=== PATIENT | male | born 1965 | race Caucasian/White ===

== ENCOUNTER 2018-09-02 02:40 | Outpatient (CLI) | payer OTHER, SELFPAY ==
[2018-09-02 11:48] LABS: Abs Immature Grans 0.01 k/cumm (0.0-0.09); Absolute Basophil Count 0.01 k/cumm (0.0-0.2); Absolute Eosinophil Count 0.09 k/cumm (0.0-0.7); Absolute Lymphocyte Count 1.29 k/cumm (1.2-3.4); Absolute Monocyte Count 0.42 k/cumm (0.11-0.7); Absolute Neutrophil Count 3.73 k/cumm (1.2-6.7); Basophils % 0.2; Eosinophils % 1.6; HCT 43.1 % (40.0-50.0); HGB 14.4 g/dL (13.5-17.5); Immature Grans % 0.2; Lymphocytes % 23.2; Mean Corp. HGB Concentration 33.4 g/dL (32.0-36.0); Mean Corpuscular Hemoglobin 30.6 pg (27.0-33.0); Mean Corpuscular Volume 91.7 fL (80-95); Mean Platelet Volume 9.6 fL (8.0-11.0); Monocytes % 7.6; Neutrophils % 67.2; Platelet Count 226 x1000/uL (130-400); RBC Distribution Width 12.7 % (11.8-14.1); White Blood Cell Count 5.55 k/cumm (4.4-10.8)
[2018-09-02 12:41] LABS: ALT 29 U/L (12-78); AST 21 U/L (15-37); Alkaline Phosphatase 58 U/L (46-116); Anion Gap 5.5 mmol/L (3-11); BUN 19 mg/dL (7-18); Bilirubin, Total 0.9 mg/dL (0.2-1.0); CO2 31.5 mmol/L (21.0-32.0); CREATININE 0.99 mg/dL (0.70-1.30); Calcium 8.9 mg/dL (8.5-10.1); Chloride 103 mmol/L (98-107); Cholesterol 195 mg/dL (50-200); Glucose 90 mg/dL (70-100); HDL Cholesterol 76 mg/dL (40-60); LDL CHOLESTEROL 110 mg/dL (<100); Sodium 140 mmol/L (136-145); TSH (W/Ref FT4) 1.69 uIU/mL (0.358-3.74)
[2018-09-02 12:48] LABS: Triglyceride < 25 mg/dL (30-150)
== END 2018-09-02 03:00 ==
PROVIDERS: PCP Internal Medicine; Visit Provider Internal Medicine
DX: R20.2 Paresthesia of skin (principal); E78.89 Other lipoprotein metabolism disorders; R53.83 Other fatigue; Z82.49 Family history of ischemic heart disease and other diseases of the circulatory system
CPT/HCPCS: 36415; 80053; 80061; 83721; 84443; 85025

== ENCOUNTER 2018-09-02 16:16 | Outpatient (CLI) | payer OTHER, SELFPAY | END 2018-09-02 16:36 | PROVIDERS: PCP Internal Medicine; Visit Provider Internal Medicine | DX: I48.91 Unspecified atrial fibrillation (principal); I49.1 Atrial premature depolarization; I49.3 Ventricular premature depolarization | CPT/HCPCS: 93225 ==

== ENCOUNTER 2018-09-06 14:43 | Outpatient (CLI) | payer OTHER, SELFPAY ==
--- NOTE | 2018-09-06 15:53 | HOLTER_ITS ---
Date of dictation: September 06, 2018 Study Indication: Atrial fibrillation. Requesting Provider: Jennie Power M.D. Findings: The patient was monitored for 2 days. The baseline rhythm was sinus rhythm. Average heart rate 53 bpm, range 36-127 bpm. There was rare ectopy. 10 PVCs and 70 PACs total. There were 3 episodes of atrial fibrillation. Total time in atrial fibrillation 7 minutes and 46 seconds. Longest episode 3 minutes and 31 seconds. Maximum heart rate 176 bpm. There were no pauses greater than 3 seconds. There was no high-degree heart block. There were no patient events. Final Interpretation: Bursts of paroxysmal atrial fibrillation.
== END 2018-09-06 15:03 ==
PROVIDERS: PCP Internal Medicine; Visit Provider Internal Medicine
DX: I48.91 Unspecified atrial fibrillation (principal); I49.1 Atrial premature depolarization; I49.3 Ventricular premature depolarization
CPT/HCPCS: 93226

== ENCOUNTER 2020-05-01 08:32 | Outpatient (CLI) | payer OTHER, SELFPAY ==
[2020-05-03 12:46] LABS: Patient Race White; SARS-CoV-2 RNA Undetected (Undetected); SARS-CoV-2 Specimen Source Nasopharynx
== END 2020-05-01 08:52 ==
PROVIDERS: PCP Nurse Practitioner; Visit Provider Nurse Practitioner
DX: Z20.828 Contact with and (suspected) exposure to other viral communicable diseases (principal)
CPT/HCPCS: U0003

== ENCOUNTER 2020-11-16 18:25 | Emergency (ER) | payer OTHER, SELFPAY ==
[2020-11-16 18:29] VITALS: BP 133/89; PULSE 64; RESP 18; TEMP 36.6; O2SAT 98
--- NOTE | 2020-11-16 18:38 | W.ED.GENAD ---
Discharge Plan Disposition Patient Disposition: HOME Condition: Good Discharge Details Clinical Impression: Finger laceration Primary Care Provider: Maru Castellanos ED Provider: Griselda Blair Home Meds and New Rx's Prescriptions: Continued multivitamin with iron 1 EACH tablet 1 ea PO DAILY RF: 0 Discharge Instructions Instructions: Finger Laceration (ED) Additional Instructions: Keep wound clean, dry, covered. Keep current dressing on until tomorrow. After that, you may cover with a Band-Aid and apply the splint provided. The brace should help prevent excess stress on the wrist. Please monitor wound for signs of infection including redness, warmth, drainage, increased pain, fever/chills. If you develop these or other new/worsening symptoms please seek care urgently once again. Please wear gloves to protect the wound and prevent infection when appropriate. Please return in 10 days for suture removal. Tetanus updated today Referrals: Maru Castellanos, [facility] [Primary Care Provider] - Discharge Data Discharge Date/Time-TO BE ENTERED AT DEPARTURE: 11/16/20 19:55 Medical Decision Making Patient is a pleasant 55-year-old [id number] male presenting today with chief complaint of laceration to left index finger. Reports that he was working on his gutters earlier when he cut himself on the edge of his metal roof. Denies other injury at the time of the incident. Denies any numbness or tingling. Unknown tetanus status. On exam, patient appears nontoxic. He has a 4 cm irregular flap laceration. Deep structures are intact. No evidence of ligamentous or bony injury. Patient and I discussed risk/benefits as well as expected procedural steps associated with closure. He voiced understanding and wishes to proceed Last tetanus was in 2014. Patient does reports that his wound was heavily contaminated. We will update this today Please see procedure note. Patient tolerated this well. Wound was copiously irrigated, explored to base in a bloodless field no foreign body or debris noted. Patient I discussed wound care and. He will return in 10 days to suture removal. Patient will be given a splint to help stabilize this area as it is near the PIP joint and keep undue pressure from the stitches. We discussed activities he should avoid. Return precautions were discussed, in particular signs of infection. All the questions and concerns were addressed and he is in agreement this plan. HPI General Mode of arrival: ambulatory. Date/Time Provider Initiated Documentation: 11/16/20 18:38. Limitations to Documentation: no limitations. Information obtained by: patient and RN notes reviewed. History of Present Illness 55 year old M presents to the emergency department with the chief complaint of left index finger laceration, described as mild, with intensity rated at 3. Quality is described as aching, and is localized to the left and upper extremity. Patient reports no radiation. Patient started experiencing this minute(s) and it has been constant. No relieving factors improve symptom(s), No exacerbating factors reported . Patient notes no other symptoms.. Patient did receive the following treatments prior to arrival, other (cleansed wound, dressing applied) Related Data Home Medications Medication Instructions Recorded Confirmed multivitamin with iron 1 ea PO DAILY 12/07/13 11/16/20 Allergies Allergy/AdvReac Type Severity Reaction Status Date / Time No Known Allergies Allergy Unverified 11/16/20 18:34 General Stated Complaint: Laceration KAYLIN: 4 Review of Systems Constitutional Constitutional: Reports as per HPI, Denies chills and Denies fever(s) Musculoskeletal Musculoskeletal: Reports as per HPI Integumentary/Breasts Skin/Breast: Reports as per HPI Neurologic Neurologic: Reports as per HPI, Denies sensory deficit and Denies paresthesias PFSH Family History Mother , 69 Substance abuse Lung cancer Father , 80 Essential hypertension Heart disease Hyperlipidemia Alcohol abuse Sister Alcohol abuse Neoplasm ORAL Substance abuse Brother Substance abuse Alcohol abuse Maternal Grandfather , 40 Heart disease Paternal Grandfather , 60 Heart disease Maternal Grandmother , 85 Heart disease Lung cancer Social History Smoking/Tobacco Use Status: Never Smoking risk assessment performed?: Yes Alcohol Intake: current Alcohol Intake frequency: a few times a month Alcohol type: beer Substance use type: does not use Caregiver/Support person: No Household members: spouse Housing: house Pets and animals: No Sexually active: Yes Do you think of yourself as: straight/heterosexual Current gender identity: male What is your relationship status?: How often do you talk on the phone with friends or family?: three or more times per week How often do you get together with friends or relatives?: once per week How often do you attend restorationist or tenriism services?: 1-3 times per year Do you belong to any clubs or organized social groups?: yes Panel score (0-1 are the most socially isolated patients): 3 Duration: 30-45 minutes/day Frequency: daily Yennifer/Alevism: None Special yennifer needs: No Do you feel safe at home: Yes Do you feel safe in your relationship?: Yes Exam Const General: cooperative, healthy appearing, comfortable, no acute distress and well developed Nutritional Appearance: average body habitus and well nourished Orientation: alert and awake Resp Effort & Inspection: normal respiratory effort, able to speak in complete sentences and no respiratory distress Cardio Rate: regular rate Rhythm: regular rhythm Skin Trauma: laceration Neuro General: patient alert and patient awake Cognition: normal cognition Speech: speech normal Gait: normal gait Sensory Exam: no sensory deficits noted Extrem Hand/finger images: 1. Irregularly-shaped flap laceration totaling 4 cm in length. Wound is in the subcutaneous tissue. The tip of the laceration is dusky and darkened. Remaining tissue appears viable. Deep structures are intact. Unable to visualize ligament injury or bone. He has good extension against resistance. Sensation is intact. Brisk capillary refill. Psych Appearance: grossly normal and well kempt Mental Status: mental status grossly normal Speech and Movement: speech and movement normal Course Vital Signs Vital signs: Vital Signs Temperature 36.6 C 11/16/20 18:29 Respiratory Rate 18 11/16/20 18:29 Blood Pressure 133/89 11/16/20 18:29 Pulse Oximetry 98 11/16/20 18:29 Temperature 36.6 C 11/16/20 18:29 Temperature Source Temporal Artery Scan 11/16/20 18:29 Respiratory Rate 18 11/16/20 18:29 Respiratory Effort Non-Labored 11/16/20 18:35 Blood Pressure 133/89 11/16/20 18:29 Blood Pressure Position Sitting 11/16/20 18:29 Pulse Oximetry 98 11/16/20 18:29 Oxygen Delivery Method Room Air 11/16/20 18:29 Oxygen Flow Rate 0 11/16/20 18:29 Pain Level 3 11/16/20 18:29 Procedures Laceration Laceration 1: Site: hand Side (If applicable): left Size (cm): 4 Description: flap and irregular Depth: simple, single layer Local Anesthetic: Lidocaine 1% Amount of anesthesia used (mL): 7 Pre-repair: wound explored, irrigated extensively and deep structures intact Skin layer closed with: nylon Size (cm): 6-0 Number of sutures: 4 Technique: simple, interrupted
== END 2020-11-16 19:55 | disposition home or self-care (01) ==
PROVIDERS: Emergency Provider Physician Assistant; PCP Nurse Practitioner
DX: S61.211A Laceration without foreign body of left index finger without damage to nail, initial encounter (principal); W26.8XXA Contact with other sharp object(s), not elsewhere classified, initial encounter
CPT/HCPCS: 12002; 90471

== ENCOUNTER 2020-11-25 15:57 | Emergency (ER) | payer OTHER, SELFPAY ==
--- NOTE | 2020-11-25 16:00 | DI.RAD_ITS ---
Exam(s) XR FOOT LT COMPLETE EXAM: XR FOOT LT COMPLETE CLINICAL HISTORY: chainsaw injury. TECHNIQUE: 2D digital imaging was performed. COMPARISON: No exams were available for comparison FINDINGS: BONES: No acute fracture is present. No bony destructive lesion is seen. There is a 2 mm density on t he plantar surface of the great toe adjacent to the base of the distal phalanx. This may represent a small foreign body. There is a small plantar calcaneal spur. JOINTS: No dislocation present. SOFT TISSUE: There soft tissue injury at the medial aspect of the great toe. IMPRESSION: 1. 2 mm density at the plantar aspect of the 1st toe at the base of the proximal phalanx which may re present a foreign body. 2. Soft tissue swelling of the great toe. DATA REPOSITORY: RADIATION DOSE DELIVERED:
[2020-11-25 16:04] VITALS: BP 130/90; PULSE 67; RESP 16; TEMP 36.8; O2SAT 97
--- NOTE | 2020-11-25 16:08 | ED.GENADUL_ITS ---
Discharge Plan Disposition Patient Disposition: HOME Condition: Stable Discharge Details Clinical Impression: Laceration of foot, left Primary Care Provider: Maru Castellanos ED Provider: Julio Ansari Home Meds and New Rx's Prescriptions: New amoxicillin-pot clavulanate [Augmentin] 875-125 mg tablet 1 tab PO BID Qty: 9 RF: 0 Continued multivitamin with iron 1 EACH tablet 1 ea PO DAILY RF: 0 Discharge Instructions Instructions: Laceration (ED) Additional Instructions: return in 10 days for evaluation for suture removal and return sooner for signs of infection including spreading redness on the skin or yellow/white discharge from the wound Medical Decision Making 55 yo male comes in after he cut his left foot with a chainsaw. He was cutting a stump with the chainsaw and states that it got stuck so he pushed harder than he normally does and it dislodged the chainsaw but hit his left foot. Denies falling or other injuries and on exam has 3cm laceration on medial distal foot proximal to the toes. Has full rom of the toes and ankle, normal sensation and pulses and no bleeding on exam. Suspect laceration but will xray to evaluate for underlying fracture. He had sutures placed on his left index finger 9 days ago and has normal sensation and wound is well healed so will remove the sutures while he is here, no evidence of infection. xray shows no fracture but noted either bone fragment on volar 1st toe that could be foreign body per vrad but this is nowhere near the laceration, he has no pain or tenderness here or palpable deformity.HE states he has had numerous foot injuries in his work and believes he fractured the toe in the past. Closed with sutures without complications, will d/c and return precautions given. Given he cut through his boot and sock will place on prophylactic antibiotics as well Differential Diagnosis Differential Diagnosis: laceration, fracture Imaging Data Radiologic Study: Attestation: I personally reviewed and interpreted this imaging study as follows: Imaging: X-Ray Radiologist's impression: PROCEDURE INFORMATION: Exam: XR Left Foot Exam date and time: 11/25/2020 4:18 PM Age: 55 years old Clinical indication: Injury or trauma; Other: Laceration to medial foot; Left; Foreign body involvement not specified TECHNIQUE: Imaging protocol: XR Left foot. Views: 3 or more views. COMPARISON: No relevant prior studies available. FINDINGS: Bones/joints: Well corticated bone fragment projects on the volar aspect of the 1st toe adjacent the base of the distal phalanx. This could be foreign body.Small plantar calcaneal spur. Soft tissues: Soft tissue swelling and deformity medial 1st MTP joint. IMPRESSION: 1. Tiny foreign body plantar aspect right 1st toe adjacent to the base of proximal phalanx. 2. Soft tissue swelling and deformity medial to the 1st MTP joint HPI General Mode of arrival: ambulatory . Date/Time Provider Initiated Documentation: 11/25/20 15:58 . Limitations to Documentation: no limitations . Information obtained by: patient . History of Present Illness 55 year old M presents to the emergency department with the chief complaint of cut left foot with chainsaw, described as mild, Quality is described as aching, and is localized to the left and lower extremity. Patient reports no radiation. Patient started experiencing this hour(s) (1) and it has been constant. No relieving factors improve symptom(s), No exacerbating factors reported . Patient notes no other symptoms.. Patient did receive the following treatments prior to arrival, none Related Data Home Medications Medication Instructions Recorded Confirmed multivitamin with iron 1 ea PO DAILY 12/07/13 11/25/20 amoxicillin-pot clavulanate 1 tab PO BID #9 tab 11/25/20 [Augmentin] Previous Rx's Medication Instructions Recorded amoxicillin-pot clavulanate 1 tab PO BID #9 tab 11/25/20 [Augmentin] Allergies Allergy/AdvReac Type Severity Reaction Status Date / Time No Known Allergies Allergy Unverified 11/25/20 16:08 General Stated Complaint: Laceration KAYLIN: 3 Review of Systems All systems reviewed & are unremarkable except as noted in HPI and below Constitutional Constitutional: Denies chills, Denies fever(s) and Denies weakness Cardiovascular Cardiovascular: Denies chest pain and Denies dyspnea Respiratory Respiratory: Denies cough and Denies dyspnea Gastrointestinal Gastrointestinal: Denies abdominal pain, Denies nausea and Denies vomiting Musculoskeletal Musculoskeletal: Denies joint swelling Neurologic Neurologic: Denies weakness Psychiatric Psychiatric: Denies depression PFSH Family History Mother , 69 Substance abuse Lung cancer Father , 80 Essential hypertension Heart disease Hyperlipidemia Alcohol abuse Sister Alcohol abuse Neoplasm ORAL Substance abuse Brother Substance abuse Alcohol abuse Maternal Grandfather , 40 Heart disease Paternal Grandfather , 60 Heart disease Maternal Grandmother , 85 Heart disease Lung cancer Social History Smoking/Tobacco Use Status: Never Smoking risk assessment performed?: Yes Alcohol Intake: never Substance use type: does not use Caregiver/Support person: No Household members: spouse Housing: house Pets and animals: No Sexually active: Yes Do you think of yourself as: straight/heterosexual Current gender identity: male What is your relationship status?: How often do you talk on the phone with friends or family?: three or more times per week How often do you get together with friends or relatives?: once per week How often do you attend spiritism or orthodoxy services?: 1-3 times per year Do you belong to any clubs or organized social groups?: yes Panel score (0-1 are the most socially isolated patients): 3 Duration: 30-45 minutes/day Frequency: daily Yennifer/Latter Day: None Special yennifer needs: No Do you feel safe at home: Yes Do you feel safe in your relationship?: Yes Exam Const General: no acute distress Orientation: alert HENMT Head: normal to inspection Ears: external ears normal General nose exam: external nose normal Mouth: moist mucous membranes Eyes General: appearance normal, both eyes and all related structures Neck Neck: normal visual inspection Resp Effort & Inspection: normal respiratory effort and able to speak in complete sentences Cardio Rate: regular rate Skin General skin exam: no rashes or lesions noted Neuro General: patient alert and patient oriented x3 Extrem General: full ROM and capillary refill normal Psych Mental Status: mental status grossly normal Course Vital Signs Vital signs: Vital Signs Temperature 36.8 C 11/25/20 16:04 Pulse 67 11/25/20 16:04 Respiratory Rate 16 11/25/20 16:04 Blood Pressure 130/90 11/25/20 16:04 Pulse Oximetry 97 11/25/20 16:04 Temperature 36.8 C 11/25/20 16:04 Temperature Source Skin 11/25/20 16:04 Pulse 67 11/25/20 16:04 Respiratory Rate 16 11/25/20 16:04 Respiratory Effort 11/25/20 16:04 Blood Pressure 130/90 11/25/20 16:04 Blood Pressure Position Sitting 11/25/20 16:04 Pulse Oximetry 97 11/25/20 16:04 Oxygen Delivery Method Room Air 11/25/20 16:04 Oxygen Flow Rate 0 11/25/20 16:04 Pain Level 3 11/25/20 16:04 Procedures Laceration Laceration 1: Site: lower extremity Side (If applicable): left Size (cm): 3 Description: linear Depth: simple, single layer Local Anesthetic: Lidocaine 1% and with Epi Amount of anesthesia used (mL): 5 Pre-repair: wound explored and irrigated extensively Skin layer closed with: nylon Size (cm): 4-0 Number of sutures: 5 Technique: simple, interrupted
--- NOTE | 2020-11-25 16:26 | DI.VRAD_ITS ---
PROCEDURE INFORMATION: Exam: XR Left Foot Exam date and time: 11/25/2020 4:18 PM Age: 55 years old Clinical indication: Injury or trauma; Other: Laceration to medial foot; Left; Foreign body involvement not specified TECHNIQUE: Imaging protocol: XR Left foot. Views: 3 or more views. COMPARISON: No relevant prior studies available. FINDINGS: Bones/joints: Well corticated bone fragment projects on the volar aspect of the 1st toe adjacent the base of the distal phalanx. This could be foreign body.Small plantar calcaneal spur. Soft tissues: Soft tissue swelling and deformity medial 1st MTP joint. IMPRESSION: 1. Tiny foreign body plantar aspect right 1st toe adjacent to the base of proximal phalanx. 2. Soft tissue swelling and deformity medial to the 1st MTP joint Dictated and Authenticated by: Elen Barnes MD. Ordering:MARLYS Kim MD
[2020-11-25] MEDS: Amoxicillin 875/Clav. 125 TAB PO (16:56)
== END 2020-11-25 17:02 | disposition home or self-care (01) ==
PROVIDERS: Emergency Provider Emergency Medicine; PCP Nurse Practitioner
DX: S91.312A Laceration without foreign body, left foot, initial encounter (principal); W29.3XXA Contact with powered garden and outdoor hand tools and machinery, initial encounter; S61.211D Laceration without foreign body of left index finger without damage to nail, subsequent encounter; W26.8XXD Contact with other sharp object(s), not elsewhere classified, subsequent encounter; Z48.02 Encounter for removal of sutures
CPT/HCPCS: 12002; 99281; 73630

== ENCOUNTER 2020-12-06 10:55 | Emergency (ER) | payer OTHER, SELFPAY ==
[2020-12-06 11:02] VITALS: BP 124/81; PULSE 55; RESP 16; TEMP 36.6; O2SAT 97
--- NOTE | 2020-12-06 11:03 | W.ED.GENAD ---
Discharge Plan Disposition Patient Disposition: HOME Condition: Stable Discharge Details Clinical Impression: Laceration of foot, left, Encounter for removal of sutures Primary Care Provider: Maru Castellanos ED Provider: Julio Ansari Home Meds and New Rx's Prescriptions: Continued multivitamin with iron 1 EACH tablet 1 ea PO DAILY RF: 0 Discharge Instructions Additional Instructions: It appears one of the sutures broke and this part of the wound that opened will heal over the next 1-2 weeks keep the wound covered when wearing socks/shoes if spreading redness or severe worsening pain return to the emergency department Medical Decision Making 55 yo male comes in for evaluation of wound for suture removal. Had sutures placed to left lateral distal foot after having a chain saw accident. The wound has a small amount of faint erythema aroud the wound without discharge. There appears to be a suture that broke distally in the woud and about 0.5cm of the wound is healing by secondary intention, no discharge, full range of motion and normal sensation without tenderness on exam. Sutures removed and advised open wound will heal via secondary intention. No indications for antibiotics but did discuss return precautions Differential Diagnosis Differential Diagnosis: suture removal, laceration HPI General Mode of arrival: ambulatory. Date/Time Provider Initiated Documentation: 12/06/20 11:01. Limitations to Documentation: no limitations. Information obtained by: patient. History of Present Illness 55 year old M presents to the emergency department with the chief complaint of suture removal, described as mild, and it has been constant. No relieving factors improve symptom(s), No exacerbating factors reported . Patient notes no other symptoms.. Related Data Home Medications Medication Instructions Recorded Confirmed multivitamin with iron 1 ea PO DAILY 12/07/13 12/06/20 Allergies Allergy/AdvReac Type Severity Reaction Status Date / Time No Known Allergies Allergy Unverified 12/06/20 11:05 General KAYLIN: 3 Review of Systems All systems reviewed & are unremarkable except as noted in HPI and below Constitutional Constitutional: Denies chills, Denies fever(s) and Denies weakness Cardiovascular Cardiovascular: Denies chest pain and Denies dyspnea Respiratory Respiratory: Denies cough and Denies dyspnea Gastrointestinal Gastrointestinal: Denies abdominal pain, Denies nausea and Denies vomiting Integumentary/Breasts Skin/Breast: Denies rash Neurologic Neurologic: Denies weakness [facility] Family History Mother , 69 Substance abuse Lung cancer Father , 80 Essential hypertension Heart disease Hyperlipidemia Alcohol abuse Sister Alcohol abuse Neoplasm ORAL Substance abuse Brother Substance abuse Alcohol abuse Maternal Grandfather , 40 Heart disease Paternal Grandfather , 60 Heart disease Maternal Grandmother , 85 Heart disease Lung cancer Social History Smoking/Tobacco Use Status: Never Smoking risk assessment performed?: Yes Alcohol Intake: never Substance use type: does not use Caregiver/Support person: No Household members: spouse Housing: house Pets and animals: No Sexually active: Yes Do you think of yourself as: straight/heterosexual Current gender identity: male What is your relationship status?: How often do you talk on the phone with friends or family?: three or more times per week How often do you get together with friends or relatives?: once per week How often do you attend buddhist or mandaeism services?: 1-3 times per year Do you belong to any clubs or organized social groups?: yes Panel score (0-1 are the most socially isolated patients): 3 Duration: 30-45 minutes/day Frequency: daily Yennifer/Faith: None Special yennifer needs: No Do you feel safe at home: Yes Do you feel safe in your relationship?: Yes Exam Const General: no acute distress Orientation: alert HENMT Head: normal to inspection Ears: external ears normal General nose exam: external nose normal Mouth: moist mucous membranes Eyes General: appearance normal, both eyes and all related structures Neck Neck: normal visual inspection Resp Effort & Inspection: normal respiratory effort and able to speak in complete sentences Cardio Rate: regular rate Skin General skin exam: no rashes or lesions noted Neuro General: patient alert and patient oriented x3 Extrem General: full ROM and capillary refill normal Psych Mental Status: mental status grossly normal
== END 2020-12-06 11:19 | disposition home or self-care (01) ==
LOC: ER 11:18
PROVIDERS: Emergency Provider Emergency Medicine; PCP Nurse Practitioner
DX: S91.312D Laceration without foreign body, left foot, subsequent encounter (principal); W29.3XXD Contact with powered garden and outdoor hand tools and machinery, subsequent encounter; Z48.02 Encounter for removal of sutures

== ENCOUNTER 2021-03-29 03:15 | Outpatient (CLI) | payer OTHER, SELFPAY ==
[2021-03-29 11:46] LABS: Hemoglobin A1C 5.5 % (<5.7)
[2021-03-29 12:41] LABS: Calculated LDL 157 mg/dL (<100); Cholesterol 234 mg/dL (<200); HDL Cholesterol 71 mg/dL (40-60); Triglyceride 30 mg/dL (<150)
== END 2021-03-29 03:16 | disposition home or self-care (01) ==
LOC: LBO 03:15
PROVIDERS: PCP Nurse Practitioner; Visit Provider Nurse Practitioner
DX: Z13.1 Encounter for screening for diabetes mellitus (principal); Z13.6 Encounter for screening for cardiovascular disorders; Z12.5 Encounter for screening for malignant neoplasm of prostate
CPT/HCPCS: 36415; 80061; 84153; 83036

== ENCOUNTER 2021-07-15 10:36 | Outpatient (CLI) | payer OTHER, SELFPAY ==
--- NOTE | 2021-07-15 10:45 | DI.RAD_ITS ---
Exam(s) XR CHEST 2V PA LATERAL EXAM: XR CHEST 2V PA LATERAL CLINICAL HISTORY: cough, left side pain r/o pneumonia, R05.9 TECHNIQUE: 2D digital imaging was performed. COMPARISON: CR CHEST 2 VIEWS PA,LAT from 01/22/2016 CR CHEST 2 VIEWS PA,LAT from 01/22/2016 CR LEFT SHOULDER COMPLETE from 08/03/2017 FINDINGS: MEDIASTINUM: Normal. HEART: Normal. PULMONARY VASCULATURE: Normal. LUNGS: Clear. PLEURAL SPACE: No pleural effusion or pneumothorax. BONE:Unremarkable for age. IMPRESSION: No acute abnormality. DATA REPOSITORY: RADIATION DOSE DELIVERED:
== END 2021-07-15 10:56 ==
PROVIDERS: PCP Nurse Practitioner; Visit Provider Physician Assistant
DX: R05.9 Cough, unspecified (principal)
CPT/HCPCS: 71046

== ENCOUNTER 2021-07-15 12:33 | Outpatient (REF) | payer OTHER, SELFPAY ==
[2021-07-16 14:10] LABS: COVID-19 RT-PCR UVMMC Result Negative (Negative)
== END 2021-07-15 12:34 | disposition home or self-care (01) ==
LOC: NCHCN 12:33
PROVIDERS: PCP Nurse Practitioner; Visit Provider Physician Assistant
DX: Z20.822 Contact with and (suspected) exposure to COVID-19 (principal)
CPT/HCPCS: U0003

== ENCOUNTER → 2022-05-12 13:07 | Outpatient (CLI) | payer OTHER, SELFPAY ==
--- NOTE | 2022-05-12 12:15 | DI.RAD_ITS ---
Exam(s) XR LUMBAR SPINE COMPLETE EXAM: XR LUMBAR SPINE COMPLETE CLINICAL HISTORY: chronic low back pain M54.50 G89.29 CHRONIC PAIN. TECHNIQUE: 2D digital imaging was performed of the lumbar spine. Five images were obtained. AP, la teral, right oblique, left oblique and L5-S1 spot views were obtained. COMPARISON: No exams were available for comparison FINDINGS: BONES: No fracture or destructive lesion. Endplate osteophytes are seen at multiple levels of the lum bar spine. Degenerative facet arthropathy is present. DISKS: There is disc space narrowing at L1-L2, L3-L4 and L4-L5. ALIGNMENT: Lumbar spinal alignment is within normal limits. No spondylolysis or spondylolisthesis. SOFT TISSUE: Normal. IMPRESSION: [id number] degenerative changes in the lumbar spine. DATA REPOSITORY: RADIATION DOSE DELIVERED:
== END ==
PROVIDERS: PCP Nurse Practitioner Family; Visit Provider Nurse Practitioner Family
DX: G89.29 Other chronic pain (principal); M47.816 Spondylosis without myelopathy or radiculopathy, lumbar region
CPT/HCPCS: 72110

== ENCOUNTER → 2022-06-05 02:40 | Outpatient (CLI) | payer OTHER, SELFPAY ==
--- NOTE | 2022-06-05 08:15 | DI.MRI_ITS ---
Exam(s) MR LUMBAR SPINE WO EXAM: MR LUMBAR SPINE WO CLINICAL HISTORY: chronic low back pain,m54.10, rt sided radiculopathy. TECHNIQUE: Multiplanar multisequence MRI of the Lumbar spine was performed. COMPARISON: CR XR LUMBAR SPINE COMPLETE from 05/12/2022 FINDINGS: Bones: The last intervertebral disc space is designated the L5/S1 level for the numbering purpose of this examination. The vertebral body heights are well maintained. Alignment is satisfactory. There are endplate degenerative signal changes throughout the lumbar spine. There is a well-circumscribed nonexpansile 2.1 x 1.4 cm lesion in the left iliac bone adjacent to the sacroiliac joint. It is homo geneously hypointense on the T1 weighted images and homogeneously hyperintense on the T2 weighted indu ges. No associated soft tissue mass is seen. Cord: The conus tip ends at the L1-L2 level. There is linear high signal within the spinal canal po sterior to the L4-3, 4 and 5 vertebral bodies. There is no evidence of a tethered cord. T12-L1: No disc herniations or bulges are present. No central spinal canal or significant neural fora vicky stenosis. L1-2: No disc herniations or bulges are present. No central spinal canal or significant neural forami nal stenosis. L2-3: No disc herniations or bulges are present. No central spinal canal or significant neural forami nal stenosis. L3-4: No disc herniations or bulges are present. No central spinal canal or neural foraminal stenosis . L4-5: There is a small central disc herniation. There are mild degenerative changes of the facets. No significant central spinal canal stenosis. There is mild narrowing of the right neural foramen. No significant left neural foraminal stenosis is seen. L5-S1: No disc herniations or bulges are present. No central spinal canal or neural foraminal stenosi s.There are degenerative changes of the facets. Soft tissues: The visualized SI joints and sacrum are well maintained. The paraspinal soft tissues ar e unremarkable. Visualized abdominal organs: Note is made of bilateral simple renal cysts. IMPRESSION: 1. 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 2. Multilevel degenerative changes in the lumbar spine. The findings do result in mild right neural foraminal narrowing at L4-L5. 3. Well-circumscribed intraosseous cyst like lesion in the left iliac bone. This may represent a wisam ign lesion however a CT scan of the pelvis is recommended for further evaluation. DATA REPOSITORY:
[2022-07-08 12:47] LABS: Anion Gap 6.1 mmol/L (3-11); BUN 18 mg/dL (7-18); CO2 31.9 mmol/L (21.0-32.0); CREATININE 1.1 mg/dL (0.70-1.30); Calcium 9.3 mg/dL (8.5-10.1); Calculated LDL 152 mg/dL (<100); Chloride 101 mmol/L (98-107); Cholesterol 235 mg/dL (<200); Estimated GFR 78.79 (mL/min/1.73m2); Glucose 92 mg/dL (74-106); HDL Cholesterol 78 mg/dL (40-60); Potassium 4.5 mmol/L (3.5-5.1); Sodium 139 mmol/L (136-145); Triglyceride 29 mg/dL (<150)
[2022-07-08 23:17] LABS: PSA, Screening 1.3 ng/mL (<=3.5)
[2022-07-09 10:16] LABS: Hepatitis C Ab w Rflx HCV PCR Negative (Negative)
[2022-07-09 10:28] LABS: HIV-1/2 Ag & Ab Screen Negative (Negative)
== END ==
PROVIDERS: PCP Nurse Practitioner Family; Visit Provider Nurse Practitioner Family
DX: M47.816 Spondylosis without myelopathy or radiculopathy, lumbar region (principal)
CPT/HCPCS: 80048; 80061; 87389; 72148

== ENCOUNTER 2022-07-08 02:58 | Outpatient (CLI) | payer OTHER, SELFPAY | END 2022-07-08 02:59 | disposition home or self-care (01) | LOC: LOS 02:58 | PROVIDERS: PCP Nurse Practitioner Family; Visit Provider Nurse Practitioner Family | DX: Z00.00 Encounter for general adult medical examination without abnormal findings (principal); I48.91 Unspecified atrial fibrillation; Z13.1 Encounter for screening for diabetes mellitus; Z13.220 Encounter for screening for lipoid disorders; Z11.4 Encounter for screening for human immunodeficiency virus [HIV]; Z11.59 Encounter for screening for other viral diseases; Z12.5 Encounter for screening for malignant neoplasm of prostate | CPT/HCPCS: 36415; 80048; 80061; 84153; 86803; 87389 ==

== ENCOUNTER 2022-08-01 00:38 | Outpatient (CLI) | payer OTHER, SELFPAY ==
--- NOTE | 2022-08-01 07:30 | DI.NM_ITS ---
Exam(s) NM BONE SCAN WHOLE BODY GRP EXAM: NM BONE SCAN WHOLE BODY GRP CLINICAL HISTORY: bone cyst, m85.60, f/u previous imaging,. TECHNIQUE: Injected Dose: 25 mCi Tc-99m MDP Delayed Images: 2-3 hours. COMPARISON: CR XR LUMBAR SPINE COMPLETE from 05/12/[address] [facility] WO from 07/15/2022 FINDINGS: Symmetric axial uptake. Bilateral renal excretion is identified. No focal area of intense suspicious uptake is seen. No increased activity seen in the left ilium. There is a mildly increased labeling s een in the right ankle and left wrist, presumably related to degenerative changes. IMPRESSION: 1. No increased activity is associated with the lucent lesion seen on prior CT and MRI. This is cons istent with a benign finding. DATA REPOSITORY:
== END 2022-08-01 00:58 ==
LOC: DI 00:39
PROVIDERS: PCP Nurse Practitioner Family; Visit Provider Nurse Practitioner Family
DX: M85.68 Other cyst of bone, other site (principal)
CPT/HCPCS: 78306

== ENCOUNTER 2023-12-24 04:28 | Outpatient (CLI) | payer OTHER, SELFPAY ==
[2023-12-24 16:39] LABS: ALT 26 U/L (16-63); AST 21 U/L (15-37); Albumin 4.4 g/dL (3.4-5.0); Alkaline Phosphatase 83 U/L (46-116); Anion Gap 9.6 mmol/L (3-11); BUN 14 mg/dL (7-18); Bilirubin, Total 1.2 mg/dL (0.2-1.0); CO2 27.4 mmol/L (21.0-32.0); CREATININE 1.1 mg/dL (0.70-1.30); Calcium 9.3 mg/dL (8.5-10.1); Calculated LDL 131 mg/dL (<100); Chloride 104 mmol/L (98-107); Cholesterol 217 mg/dL (<200); Glucose 99 mg/dL (74-106); HDL Cholesterol 79 mg/dL (40-60); Potassium 4.3 mmol/L (3.5-5.1); Sodium 141 mmol/L (136-145); Total Protein 7.3 g/dL (6.4-8.2); Triglyceride 35 mg/dL (<150)
== END 2023-12-24 04:29 | disposition home or self-care (01) ==
LOC: LBO 04:28
PROVIDERS: PCP Nurse Practitioner Family; Visit Provider Nurse Practitioner Family
DX: Z13.220 Encounter for screening for lipoid disorders (principal)
CPT/HCPCS: 36415; 80053; 80061

== ENCOUNTER 2024-05-06 15:37 | Outpatient (REF) | payer OTHER, SELFPAY ==
[2024-05-06 22:47] LABS: PSA, Screening 1.3 ng/mL (<=3.5)
== END 2024-05-06 15:38 | disposition home or self-care (01) ==
LOC: LBN 15:37
PROVIDERS: PCP Nurse Practitioner Family; Visit Provider Nurse Practitioner Family
DX: R35.0 Frequency of micturition (principal); N52.9 Male erectile dysfunction, unspecified; R30.0 Dysuria
CPT/HCPCS: 84153; 84443

== ENCOUNTER 2024-06-27 09:02 | Day surgery (SDC) | payer OTHER, SELFPAY ==
--- NOTE | 2024-06-26 15:33 | W.ANESPRE ---
General Info Date of Service Date Performed: 06/27/24 Height: 5 ft 11 in Weight: 34.347 kg Body Mass Index (BMI): 10.5 Surgical Procedure: Operation Date: 06/27/24 10:35 Proposed Procedure Side Surgeon manjula Rivera MD Meds Allergies and Home Medications Allergies Allergy/AdvReac Type Severity Reaction Status Date / Time No Known Allergies Allergy Verified 06/27/24 09:32 Home Medication ?Medication ?Instructions ?Recorded multivitamin with iron 1 ea PO DAILY 12/07/13 omega 0-zvg-ejw-fish oil 60 mg-90 1 cap PO DAILY 03/22/21 mg-500 mg capsule (Fish Oil) Current Visit Medications: Current Medications Generic Name Dose Route Start Last Admin Trade Name Freq PRN Reason Stop Dose Admin Ringer's Solution 1,000 mls @ 0 mls/hr 06/27/24 06:00 IV 07/24/24 23:59 INFUSION MAGO IV Miscellaneous Supplies 1 each 06/27/24 06:00 Iv Access IV 07/24/24 23:59 DIRECTED MAGO Sodium Chloride 0 ml 06/27/24 06:00 Normal Saline Flush 10 Ml Syr IV 07/24/24 23:59 PRN PRN Sodium Chloride 0 ml 06/27/24 06:00 Normal Saline 10 Ml Vial IJ 07/24/24 23:59 DIRECTED PRN Sterile Water 0 ml 06/27/24 06:00 Water,Injection,Sterile 10 Ml Vial IJ 07/24/24 23:59 DIRECTED PRN PFSH Active Problems Active Problems: Problem Status Onset Code Urinary frequency Acute R35.0 Bone cyst Acute M85.60 Chronic low back pain Chronic M54.50, G89.29 Atrial fibrillation Chronic I48.91 Surgical History Surgical History (Updated 06/27/24 @ 09:34 by Sheila Huddleston) Hx of prior ablation treatment x2, one for afib and aflutter Tobacco Smoking/Tobacco Use Status: Never Passive smoking exposure: Yes Second hand exposure: Yes Alcohol Alcohol Intake: current Alcohol intake frequency: a few times a month Alcohol type: beer Substance Use Substance use: Never Substance use type: does not use Vital Signs and Lab Results Vital Signs Most Recent Vital Signs in EMR: Temp Pulse Resp BP Pulse Ox 36.5 C 57 L 16 119/88 97 06/27/24 09:37 06/27/24 09:37 06/27/24 09:37 06/27/24 09:37 06/27/24 09:37 Lab Results Blood Type / Crossmatch: No Data to Display Complete Blood Count: No Data to Display Complete Metabolic Panel: No Data to Display Liver Function Panel: No Data to Display Coagulation Panel: No Data to Display Cardiac Panel: No Data to Display Arterial Blood Gas: No Data to Display Venous Blood Gas: No Data to Display Pancreas Panel: No Data to Display Thyroid Panel: No Data to Display Infectious Disease: No Data to Display Blood Cultures: No Data to Display Toxicology Panel: No Data to Display Anesthesia Assessment and Plan Anesthesia History Personal History: No History of Anesthesia Complications Family History: No Family History of Anesthesia Complications Exercise Tolerance Exercise Tolerance: Metabolic Equivalents>4 Cardiac & Pulmonary Exam Cardiac Exam: Normal S1/S2 Heart Sounds Pulmonary Exam: Clear Bilateral Breath Sounds Implantable Cardiac Device Does patient have a Pacemaker or an ICD?: No Airway Exam Known Difficult Airway: No Mallampati Class: 3 Mouth Opening: Normal (> 3cm) Thyromental Distance: Greater than 3 cm Neck Range of Motion: Full ROM Neck Circumference: Normal Teeth Condition: Normal Dentition ASA Classification ASA Score: ASA 2 Emergency Case?: No NPO Status NPO Status: NPO Clears >2 hours, Solids >8 hours Anesthesia Plan Resuscitation Status: Full Code Anesthesia Technique: General Anesthesia Airway Planned: Natural Airway Monitors Used: Standard Monitors Preoperative Comments:: 59 yo male for colo. Sig PMHx: afib ([facility] [place], 2019), LBP,
--- NOTE | 2024-06-26 16:29 | PDOC.DSDIS_ITS ---
Date of service: 06/27/24 Discharge Plan Disposition Patient Disposition: Home Condition: Good Discharge Details Reason For Visit: screening colonoscopy Attending Provider: Aleks Rivera Primary Care Provider: Tommy Hein Home Meds and New Rx's Prescriptions: Continued omega 6-vlb-xtv-fish oil [Fish Oil] 60-90-500 mg capsule 1 cap PO DAILY multivitamin with iron 1 EACH tablet 1 ea PO DAILY Discontinued bisacodyl [Dulcolax (bisacodyl)] 5 mg tablet,delayed release (DR/EC) 5 mg PO ONCE Qty: 4 0RF Rx Instructions: Take per colonoscopy instructions provided by ordering providers office polyethylene glycol 3350 17 gram/dose powder 17 g PO ONCE Qty: 238 0RF Rx Instructions: Take per colonoscopy instructions provided by ordering providers office Discharge Instructions Additional Instructions: Teddy, it was very nice meeting you today. I hope you are comfortable throughout the procedure. Everything went very smoothly. Your prep was excelle nt and I could see everything fine. I saw no signs of any tumors, polyps, or any other worrisome pathology. With minimal risk factors for colon cancer, and negative colonoscopy today is good for 10 years. I would encourage you to consider another colonoscopy at that point to reduce the likelihood of dying from colon cancer over the course of your lifetime. If you have any questions, or need anything on the meantime, please do not hesitate to ask. 1. If tolerated, consume a soft, low fiber diet for 1-2 days. 2[address] Do not drive, drink alcohol, operate machinery, make critical decisions, or do activities that require coordination or balance for 24 hours. 3. Because air was put into your colon during the procedure, expelling air from your rectum (passing gas or farting) is normal. 4. You may not have a bowel movement for 1-3 days because of the colonoscopy prep. This is normal. 5. Go directly to the emergency room if you notice any of the following: Develop chills (warm to touch), or if you have a thermometer and your temperature is above 101 Difficulty breathing or difficultly swallowing Persistent vomiting Severe abdominal pain, other than gas cramps Severe chest pain Black, tarry stools Any bleeding ? exceeding one tablespoon 6. Call your physician if the site where your intravenous was started becomes red, swollen, painful, and warm to touch. 7. Your physician has reviewed your pre-procedure medications. Please continue to take those medications as previously ordered. You will be given specific information/education regarding any changes to your medications before leaving. Activity:: Activity as Tolerated Diet:: As Tolerated Discharge Orders Discharge Orders: Discharge Order (Routine); Ordered 06/26/24 Ordered By: Aleks Rivera
--- NOTE | 2024-06-26 16:30 | COLE_ITS ---
Date of service: 06/27/24 Time of Service: 10:50 Colonoscopy Report Date of procedure: 06/27/24 Pre-op diagnosis general: screening colonsocopy Post-op diagnosis procedure note: other (Negative screening colonoscopy) Procedure: colonoscopy Surgeon: Aleks Rivera Anesthesia Type: General:No Airway Estimated blood loss (mL): 0 Pathology: none sent Complications: None Disposition: same day Indications: Teddy is a 59 year old man who needs his next screening colonoscopy Prep: Miralax/Dulcolax Procedure Start Time: 10:27 Procedure End Time: 10:47 Retraction Time: 11 Findings: Negative screening colonoscopy Procedure Description: After the induction of anesthesia, and with the patient in left lateral decubitus position, I began by performing an external anorectal exam.? Perineum and skin were normal, as was the anal verge.? There was no evidence of external hemorrhoids.? Next, I performed a digital rectal exam.? I did not appreciate any abnormal findings.? Next, I advanced a colonoscope into the rectal vault.? I performed retroflexion.? This appeared normal.? Using insufflation, I then advanced the colonoscope beyond the rectal folds and into the sigmoid colon before advancing towards the cecum.? The quality of the prep was excellent.? The scope was noted to be in the cecum by identification of the ileocecal valve and appendiceal orifice.? I then began withdrawing the colonoscope using repeated irrigation as necessary for full evaluation of the colonic mucosa. ?Once the scope was withdrawn to the level of the rectum, great care was taken to examine portions of the rectal folds.? I saw no signs of tumors, polyps, or any other worrisome pathology. Finally, the scope was withdrawn and the patient was brought to the same-day surgery recovery unit as the anesthetic wore off. ?The findings and instructions were shared with the patient prior to discharge. [place] Bowel Prep [place] Bowel Prep Right Colon: 3 Left Colon: 3 Transverse Colon: 3 Total Score: 9
[2024-06-27 09:24] VITALS: BMI 10.5
[2024-06-27 09:37] VITALS: BP 119/88; PULSE 57; RESP 16; TEMP 36.5; O2SAT 97
[2024-06-27] MEDS: Normal Saline Flush 10 ML SYR IV (09:58)
[2024-06-27 10:54] VITALS: BP 108/82; PULSE 53; RESP 16; TEMP 36.1; O2SAT 95
--- NOTE | 2024-06-27 11:00 | W.ANESPOSTOP ---
Postoperative Evaluation Date, Time and Location Date Performed: 06/27/24 Time Performed: 11:00 Patient Location: Day Surgery Unit Vital Signs Most Recent Imported Vital Signs: Most Recent Vital Signs Temp Pulse Resp BP Pulse Ox 36.1 C L 53 L 16 108/82 95 06/27/24 10:54 06/27/24 10:54 06/27/24 10:54 06/27/24 10:54 06/27/24 10:54 Pain Score Most Recent Pain Score: Most Recent Pain Score Pain Level 0 06/27/24 10:54 Assessment Mental Status: Awake (Alert & Oriented to Patient Baseline) Airway and Respiratory Function: Patent airway with normal (patient baseline) respiratory exam Cardiovascular Function: Hemodynamically Stable Hydration Status: Adequately Hydrated Nausea & Vomiting: No Nausea or Vomiting Pain: Pt. Denies Any Pain Peripheral Nerve Block: Patient did not receive a nerve block
[2024-06-27 11:23] VITALS: BP 122/88; PULSE 49; RESP 16; TEMP 36.5; O2SAT 96
== END 2024-06-27 11:42 | disposition home or self-care (01) ==
LOC: SUR 09:03
PROVIDERS: PCP Nurse Practitioner Family; Visit Provider Surgery
PROC: 0DJD8ZZ Inspection of Lower Intestinal Tract, Via Natural or Artificial Opening Endoscopic (ICD-10-PCS; CPT 45378; principal; 2024-06-27 10:30)
DX: Z12.11 Encounter for screening for malignant neoplasm of colon (principal)
CPT/HCPCS: 45378; J2704

== ENCOUNTER 2025-02-09 13:18 | Outpatient (REF) | payer OTHER, SELFPAY ==
[2025-02-09 14:21] LABS: Glucose Negative (Negative)
== END 2025-02-09 13:19 | disposition home or self-care (01) ==
LOC: LBN 13:18
PROVIDERS: PCP Nurse Practitioner Family; Visit Provider Nurse Practitioner Family
DX: R30.0 Dysuria (principal)
CPT/HCPCS: 81003